=== PATIENT | male | born 2000 | race Caucasian/White ===

== ENCOUNTER 2023-09-04 10:01 | Emergency (ER) | payer OTHER, SELFPAY ==
[2023-09-04 10:26] VITALS: BP 112/61; PULSE 73; RESP 18; TEMP 36.2; O2SAT 98
--- NOTE | 2023-09-04 10:43 | ED.URI ---
HPI - URI/Sore Throat General Chief Complaint: Upper Respiratory Infection Stated Complaint: congestion Time Seen by Provider: 09/04/23 10:34 Source: patient and RN notes reviewed Mode of arrival: ambulatory Limitations: no limitations History of Present Illness HPI Narrative: Patient presents today with a 1 month history of nasal congestion, headache, facial pressure, cough. Denies fever. He has been taking Claritin, Mucinex DM, and using an albuterol inhaler with some relief. Patient was seen at onset of symptoms and was diagnosed with what sounds like a viral illness and was given a prescription for the albuterol inhaler. Related Data Home Medications Medication Instructions Recorded Confirmed albuterol sulfate 90 mcg/actuation 2 puff inhalation Q4-5H PRN 09/04/23 09/04/23 aerosol inhaler Wheezing escitalopram oxalate 10 mg tablet 10 mg PO DAILY 09/04/23 09/04/23 Allergies Allergy/AdvReac Type Severity Reaction Status Date / Time No Known Allergies Allergy Verified 09/04/23 10:31 Review of Systems Review of Systems: CONSTITUTIONAL: Denies body aches, fever, chills, or sweats. EYES: Denies visual changes, redness, or discharge. ENT: Denies rhinorrhea, sore throat.+ congestion, facial pressure, left ear pressure CARDIOVASCULAR: Denies chest pain, palpitations, or edema. RESPIRATORY: Denies dyspnea.+ cough GASTROINTESTINAL: Denies abdominal pain, nausea, vomiting, or diarrhea. GENITOURINARY: Denies dysuria or hematuria. SKIN: Denies rash, itching, or wounds. MUSCULOSKELETAL: Denies back pain, joint pain, or myalgia. NEUROLOGIC: Denies numbness, tingling, or weakness.+ headache PSYCH: Denies depression or anxiety. PMFSH Comments At time of signature, I have reviewed and agree with nursing past medical, surgical, social and family history unless otherwise noted. Please see nursing chart for further information. There is no relevant family history pertinent to the presenting complaint Exam Narrative: GENERAL: Mildly ill-appearing, well-nourished, and in no acute distress. HEAD: Normocephalic, atraumatic. EYES: EOMI. No redness or drainage. Conjunctivae normal. ENT: Mucous membranes pink and moist. Nares congested with rhinorrhea. TMs normal bilaterally. Throat normal. Uvula midline. NECK: Normal AROM. Supple. No lymphadenopathy. CHEST: No respiratory distress. Clear to auscultation. HEART: Regular rate and rhythm. No murmur appreciated. EXTREMITIES: Normal range of motion. No edema. SKIN: Warm, dry, no rash. Capillary refill normal. Normal skin turgor. NEURO: No focal deficits. Alert and oriented x3. Gait steady. PSYCH: Normal affect. No signs of depression or anxiety. Course Course Level of Care: Express Care Visit Vital Signs Vital signs: Vital Signs Temperature 97.2 F L 09/04/23 10:26 Pulse Rate 73 09/04/23 10:26 Respiratory Rate 18 09/04/23 10:26 Blood Pressure 112/61 09/04/23 10:26 Pulse Oximetry 98 09/04/23 10:26 Oxygen Delivery Room Air 09/04/23 10:26 Temperature 97.2 F L 09/04/23 10:26 Pulse Rate 73 09/04/23 10:26 Respiratory Rate 18 09/04/23 10:26 Blood Pressure 112/61 09/04/23 10:26 Pulse Oximetry 98 09/04/23 10:26 Oxygen Delivery Room Air 09/04/23 10:27 Reviewed MDM - URI/Sore Throat MDM Narrative Medical decision making narrative: Patient will be treated with Augmentin and prednisone for sinusitis and bronchitis. No testing indicated at this time. Anticipatory guidance given. Differential Diagnosis Differential diagnosis: Likely upper respiratory infection, otitis media, sinusitis, bronchitis and other (Pneumonia) Critical Care Time Critical Care Time Critical Care Time: No Discharge Plan Discharge Clinical Impression: Bronchitis Sinusitis Qualifiers: Sinusitis location: unspecified location Chronicity: acute Recurrence: non-recurrent Qualified Code(s): J01.90 - Acute sinusitis, unspecified Patient D
== END 2023-09-04 10:52 | disposition home or self-care (01) ==
PROVIDERS: Emergency Provider Nurse Practitioner
DX: J40 Bronchitis, not specified as acute or chronic (principal); J01.90 Acute sinusitis, unspecified; F41.9 Anxiety disorder, unspecified
CPT/HCPCS: 99203; G0463

== ENCOUNTER 2024-01-24 16:07 | Emergency (ER) | payer OTHER, SELFPAY ==
[2024-01-24 16:17] VITALS: BP 146/56; PULSE 66; RESP 16; TEMP 36.4; O2SAT 100
--- NOTE | 2024-01-26 09:19 | ED.SKABFB ---
HPI - Skin/Abscess/Foreign Bdy General Chief complaint: Skin/Abscess/Foreign Body Stated complaint: Poison [place] Time Seen by Provider: 01/24/24 16:20 Source: patient Mode of arrival: ambulatory Limitations: no limitations History of Present Illness HPI narrative: 23-year-old male presents with complaint of itchy rash to skin for approximately 1 week. Started after working outdoors. Thinks it is poison [place]. Applying calamine lotion with no relief. Rash to bilateral arms, face, groin. All systems reviewed and negative except as noted above. Related Data Home Medications Medication Instructions Recorded Confirmed escitalopram oxalate 10 mg tablet 10 mg PO DAILY 09/04/23 01/24/24 Allergies Allergy/AdvReac Type Severity Reaction Status Date / Time No Known Allergies Allergy Verified 01/24/24 16:09 Review of Systems Review of Systems: CONSTITUTIONAL: Denies fever, chills, or sweats. EYES: Denies visual changes, redness, or discharge. ENT: Denies rhinorrhea, congestion, sore throat, or otalgia. CARDIOVASCULAR: Denies chest pain, palpitations, or edema. RESPIRATORY: Denies cough or dyspnea. GASTROINTESTINAL: Denies abdominal pain, nausea, vomiting, or diarrhea. GENITOURINARY: Denies dysuria or hematuria. SKIN: Reports rash and itching. MUSCULOSKELETAL: Denies back pain, joint pain, or myalgia. NEUROLOGIC: Denies headache, numbness, or weakness. PSYCHIATRIC: Denies anxiety or depression. All other systems reviewed are negative, except as documented in HPI. PMFSH Comments At time of signature, agree with nursing past medical, surgical, social and family history. There is no relevant family history pertinent to the presenting complaint. Exam Narrative: GENERAL: This is a well-nourished, well-developed patient, in no apparent distress. HEAD: normocephalic, atraumatic. EYES: PERRL. Sclera clear/white. Vision is grossly intact. EARS: External ears normal NOSE: External nose normal NECK: Neck supple, non-tender without lymphadenopathy, masses or thyromegaly. CARDIOVASCULAR: Regular rate and rhythm without murmurs, gallops, or rubs. RESPIRATORY: Clear to auscultation. Breath sounds equal bilaterally. No wheezes, rales, or rhonchi. SKIN: warm, Dry, intact, good texture and turgor. erythematous fascicular rash with scabbing to bilateral arms, groin and upper thigh, Left cheek. No signs of infection. NEURO: awake, alert, and oriented to person, place and time. There were no obvious focal neurologic abnormalities. EXTREMITIES: No joint tenderness, effusion, or edema noted. Course Course Level of Care: Express Care Visit Vital Signs Vital signs: Vital Signs Temperature 36.4 C L 01/24/24 16:17 Pulse Rate 66 01/24/24 16:17 Respiratory Rate 16 01/24/24 16:17 Blood Pressure 146/56 H 01/24/24 16:17 Pulse Oximetry 100 01/24/24 16:17 Oxygen Delivery Room Air 01/24/24 16:17 Temperature 36.4 C L 01/24/24 16:17 Pulse Rate 66 01/24/24 16:17 Respiratory Rate 16 01/24/24 16:17 Blood Pressure 146/56 H 01/24/24 16:17 Pulse Oximetry 100 01/24/24 16:17 Oxygen Delivery Room Air 01/24/24 16:17 Reviewed MDM - Skin/Abscess/Foreign Bdy MDM Narrative Medical decision making narrative: Patient is aware of diagnosis, understands and agrees to treatment plan. Anticipatory guidance given. Patient agrees to follow-up as directed and is aware of reasons to seek care at the emergency department. Portions of this record may have been created with voice recognition software Differential Diagnosis Differential diagnosis: Likely contact dermatitis Discharge Plan Discharge Clinical Impression: Dermatitis due to plants, including poison [place], sumac, and oak Patient Disposition: Home, Self-Care Condition: Stable Instructions: Poison [place] (ED) Additional Instructions: take steroids as prescribed To treat poison [place]. Apply steroid cream 2 to 3 times a day to a
== END 2024-01-24 16:37 | disposition home or self-care (01) ==
PROVIDERS: Emergency Provider Nurse Practitioner Family
DX: L23.7 Allergic contact dermatitis due to plants, except food (principal); F41.9 Anxiety disorder, unspecified
CPT/HCPCS: 99213; G0463